=== PATIENT | female | born 2000 | race Caucasian/White ===

== ENCOUNTER 2024-07-03 11:14 | Emergency (ER) | payer BC, SELFPAY ==
[2024-07-03 11:25] VITALS: BP 122/76; PULSE 65; RESP 18; TEMP 37.1; O2SAT 100; BMI 34.7
[2024-07-03] MEDS: IPRATROPIUM 0.5 MG/2.5 ML NEB INH (11:45)
[2024-07-03 12:00] VITALS: PULSE 78; RESP 20; O2SAT 100
--- NOTE | 2024-07-03 12:02 | RT ---
pt elis sanders well,on room air with no distress noted
--- NOTE | 2024-07-03 12:39 | ED.ASTHMA ---
HPI - Asthma <Annel Napier PA-C - Last Filed: 07/03/24 13:38> General Chief Complaint: Asthma Stated Complaint: Per Patient, Asthma attack Time Seen by Provider: 07/03/24 12:39 Source: patient Mode of arrival: Wheelchair History of Present Illness HPI Narrative: Ms. Perkins is a pleasant 24-year-old female with a past medical history of asthma who presents to the emergency department for an asthma attack that started this morning around 10:30 a.m. Patient states she does not take albuterol because it does give her tremors so instead she uses a different daily inhaler that she does not recall the name of. States that she very infrequently has asthma attacks and is unsure of what triggers them, last attack was over a year ago. States that she was at work when all of a sudden she started to feel an asthma attack come on which she describes as wheezing and dry cough. She drove herself to the emergency department. She also noticed that she starting to get some red spots on her face. Reports that she recently had a colonoscopy because she has been having intermittent episodes of nausea and vomiting, she did have an episode of her typical nausea and vomiting this morning but denies feeling sick. She denies fevers, chills, recent flu-like symptoms, chest pain, known allergic contact or trigger. No medications prior to arrival. She did receive and Atrovent nebulizer prior to my examination and reports that all of her symptoms are resolved at this time. Related Data Previous Rx's Medication Instructions Recorded loratadine 10 mg tablet 10 mg PO DAILY #30 tabs 07/03/24 Allergies Allergy/AdvReac Type Severity Reaction Status Date / Time Penicillins Allergy Verified 07/03/24 11:25 Review of Systems <Annel Napier PA-C - Last Filed: 07/03/24 13:38> Review of Systems ROS Unobtainable: All systems reviewed & are unremarkable except as noted in HPI and below Patient History <Annel Napier PA-C - Last Filed: 07/03/24 13:38> Social History Smoking Status: Never smoker Smoking Status: Never smoker tobacco type: vaping Exam <Annel Napier PA-C - Last Filed: 07/03/24 13:38> Narrative Exam Narrative: GENERAL: 24 year old patient appears stated age. Well-developed patient, in no acute distress. HEAD: Atraumatic. Normocephalic. EYES: No scleral icterus. No injection or drainage. ENT: Normal TMs bilaterally. Nose without bleeding, purulent drainage. Throat without erythema, tonsillar hypertrophy or exudate. No mucous membrane lesions. Airway patent. NECK: Trachea midline. Cervical ROM intact. CARDIOVASCULAR: Regular rate and rhythm. RESPIRATORY: ?Nonlabored respirations. ?Speaking in clear, full sentences. ?Clear to auscultation. Breath sounds equal bilaterally. No wheezes, rales, or rhonchi. ? EXTREMITIES: No edema or joint tenderness. NEURO: AOx3. ?Clear speech. ?Moves all 4 extremities appropriately. SKIN: No rash or erythema of visible areas. Initial Vital Signs Initial Vital Signs: Vital Signs Temperature 98.7 F 07/03/24 11:25 Pulse Rate 65 07/03/24 11:25 Respiratory Rate 18 07/03/24 11:25 Blood Pressure 122/76 07/03/24 11:25 Pulse Oximetry 100 07/03/24 11:25 Oxygen Delivery Method Room Air 07/03/24 11:25 <Summer Villafana DO - Last Filed: 07/11/24 09:11> Initial Vital Signs Initial Vital Signs: Vital Signs Temperature 98.7 F 07/03/24 11:25 Pulse Rate 65 07/03/24 11:25 Respiratory Rate 18 07/03/24 11:25 Blood Pressure 122/76 07/03/24 11:25 Pulse Oximetry 100 07/03/24 11:25 Oxygen Delivery Method Room Air 07/03/24 11:25 Course <Annel Napier PA-C - Last Filed: 07/03/24 13:38> Orders Ordered: Discontinued Medications Ipratropium Seward (Ipratropium 0.5 Mg/2.5 Ml Neb) 0.5 mg INH NOW ONE Stop: 07/03/24 11:45 Last Admin: 07/03/24 11:45 Dose: 0.5 mg Documented By: PATT Loratadine (Loratadine 10 Mg Tablet) 10 mg PO NOW ONE Stop: 07/03/24 12:49 Last Admin: 07/03/24 13:04 Dose: 10 mg Documented By: DEL Prednisone (Prednisone 20 Mg Tablet) 40 mg PO NOW ONE Stop: 07/03/24 12:49 Last Admin: 07/03/24 13:04 Dose: 40 mg Documented By: DEL Vital Signs Vital signs: Vital Signs - 8 hr 07/03/24 11:25 07/03/24 12:00 Temperature 98.7 F Pulse Rate 65 78 Respiratory Rate 18 20 Blood Pressure 122/76 Pulse Oximetry 100 100 Oxygen Delivery Method Room Air Room Air <Summer Villafana DO - Last Filed: 07/11/24 09:11> Orders Ordered: Discontinued Medications Ipratropium [place]ard (Ipratropium 0.5 Mg/2.5 Ml Neb) 0.5 mg INH NOW ONE Stop: 07/03/24 11:45 Last Admin: 07/03/24 11:45 Dose: 0.5 mg Documented By: PATT Loratadine (Loratadine 10 Mg Tablet) 10 mg PO NOW ONE Stop: 07/03/24 12:49 Last Admin: 07/03/24 13:04 Dose: 10 mg Documented By: DEL Prednisone (Prednisone 20 Mg Tablet) 40 mg PO NOW ONE Stop: 07/03/24 12:49 Last Admin: 07/03/24 13:04 Dose: 40 mg Documented By: DEL Vital Signs Vital signs: Vital Signs - 8 hr 07/03/24 11:25 07/03/24 12:00 Temperature 98.7 F Pulse Rate 65 78 Respiratory Rate 18 20 Blood Pressure 122/76 Pulse Oximetry 100 100 Oxygen Delivery Method Room Air Room Air MDM - Asthma <Annel Napier PA-C - Last Filed: 07/03/24 13:38> Medical Records Medical records narrative: None available for review [facility] Narrative Medical decision making narrative: 24-year-old female with a past medical history of asthma who presents to the emergency department for an asthma attack that started this morning around 10:30 a.m. Differential diagnosis includes but isn't limited to asthma exacerbation, reactive airways disease, allergies, viral syndrome, pneumonia, bronchitis, etc. On exam the patient is in no acute distress, nontoxic-appearing, all vital signs within normal limits, no increased work of breathing, 100% O2 on room air. At my time evaluation she is already received an Atrovent nebulizer and reports it resolved all of her symptoms. We will check x-ray to rule out pulmonary abnormality, treat with loratadine and prednisone. Patient reports that she does have an albuterol inhaler to use if needed for asthma exacerbation at home however she opted to not use it due to her history of tremors from it, states that this is only the 2nd time she has ever had an exacerbation in her life, is still trying to figure out her triggers. Patient's x-ray reveals no acute cardiopulmonary abnormality. She remained symptom free during her emergency department stay. Denies any chest pain, shortness of breath, coughing or wheezing. Lungs continued to be clear to auscultation. While sitting on the finish sander, patient's heart rate did go down into the mid 40s at rest and then would come up into the 60s/70s when we came into the room. Patient states that she did have a Holter monitor when she was about 12 years old, recommend that she follow up with her PCP for further evaluation/Holter monitor, return to the ED for any symptoms of course. Discussed strict ED return precautions. We will treat with daily loratadine and 5 day course of prednisone. She does have an albuterol inhaler to use if needed. Patient verbalized understanding of all information is agreeable to the plan, feeling much better, stable for discharge home. Discharge Plan Departure Patient Disposition: Home Clinical Impression: Asthma with acute exacerbation Qualifiers: Asthma severity: unspecified severity Asthma persistence: intermittent Qualified Code(s): J45.21 - Mild intermittent asthma with (acute) exacerbation Instructions: DI for Asthma -- Adult Activity Restrictions/Additional Instructions: Dear Maddie, Thank you for coming to the emergency department. Today you were treated for an asthma exacerbation. You received an Atrovent nebulizer, loratadine which is an allergy pill, and prednisone which is a steroid. I have sent you a prescription for 4 additional days of steroids and also I would like you to continue taking daily loratadine. Please use your emergency albuterol inhaler if needed for any wheezing or difficulty breathing. Please follow up with your primary care doctor. While on the heart monitor in the emergency department, your heart rate varied from the 40s to 70s, I do think it is a good idea to have a Holter monitor with your primary care doctor for further evaluation. Please follow up with your primary care doctor within the next 2-3 days for ER follow-up. (If you do not have a PCP you can call [phone]. ?to schedule an appointment with an [facility] Primary Care Provider) IF YOU DEVELOP ANY NEW OR WORSENING SYMPTOMS, RETURN TO THE ER! Please read the attached instructions, they highlight more specific treatments and interventions for you at home. Thank you for letting me participate in your care, Annel Napier PA-C Prescriptions: New loratadine 10 mg tablet 10 mg PO DAILY Qty: 30 0RF Stand Alone Forms: Patient Portal/API/Survey, Work Release Note ED Sign-out <Summer Villafana, - Last Filed: 07/11/24 09:11> Cosign ED Attending Cosallenature Attestation: I was available for consultation.
--- NOTE | 2024-07-03 12:48 | DI.RAD.S_ITS ---
PROCEDURE: XR CHEST 2V INDICATIONS: asthma exac TECHNIQUE: 2 views of the chest were acquired. COMPARISON: None. FINDINGS: Surgical changes and devices: None. Lungs and pleura: Lungs are clear. No pleural effusions or pneumothorax. Mediastinum: Mediastinal contours are normal. Heart size is normal. Bones and chest wall: No suspicious bony abnormalities. Soft tissues appear unremarkable. IMPRESSION: No acute cardiopulmonary abnormality is seen by plain film. Dictated by: Abel Pena M.D. on 07/03/2024 at 12:18 Approved by: Abel Pena M.D. on 07/03/2024 at 12:18
[2024-07-03] MEDS: predniSONE 20 MG TABLET 40 MG PO (13:04)
[2024-07-03] MEDS: LORATADINE 10 MG TABLET PO (13:04)
[2024-07-03 13:53] VITALS: BP 123/86; PULSE 62; RESP 14; O2SAT 99
== END 2024-07-03 13:56 | disposition home or self-care (01) ==
PROVIDERS: Emergency Provider Physician Assistant
DX: J45.21 Mild intermittent asthma with (acute) exacerbation (principal)
CPT/HCPCS: 71046; 94150; 94640; 99283